=== PATIENT | female | born 1965 | race Caucasian/White ===

== ENCOUNTER 2020-11-03 12:33 | Emergency (ER) | payer MEDICAID ==
[~2020-11-03] VITALS: Ht 177.8 cm; Wt 70.0 kg
[2020-11-03 12:40] VITALS: BP 134/89
[2020-11-03] MEDS ORDERED: naloxone 2mg/2ml inj IM STA (13:02)
[2020-11-03] MEDS ORDERED: naloxone 2mg/2ml inj ONE (13:03)
[2020-11-03] MEDS ORDERED: normal saline 1000ML IV soln IVB ONE (13:05)
[2020-11-03] MEDS ORDERED: naloxone 0.4 mg/ml inj IV PRN (13:05)
== END 2020-11-03 14:45 | disposition home or self-care (01) ==
LOC: ER 12:35
DX: T40.1X1A Poisoning by heroin, accidental (unintentional), initial encounter (principal); R40.0 Somnolence; F32.9 Major depressive disorder, single episode, unspecified; F17.200 Nicotine dependence, unspecified, uncomplicated; Z72.89 Other problems related to lifestyle; F11.90 Opioid use, unspecified, uncomplicated; Z86.19 Personal history of other infectious and parasitic diseases; Z85.3 Personal history of malignant neoplasm of breast; Y92.89 Other specified places as the place of occurrence of the external cause
CPT/HCPCS: 96372; 99284; J2310

== ENCOUNTER 2024-01-05 12:07 | Emergency (ER) | payer MEDICAID ==
[~2024-01-05] VITALS: Ht 177.8 cm; Wt 68.2 kg
[2024-01-05 12:18] VITALS: BP 147/117; PULSE 69; TEMP 98; O2SAT 99
[2024-01-05] MEDS ORDERED: ketorolac trometh inj. 60 MG/2 ML VIAL IM ONE (12:45)
[2024-01-05] MEDS ORDERED: CYCL-1 PO (12:48)
[2024-01-05] MEDS ORDERED: PRED20TA PO (12:48)
[2024-01-05 12:51] VITALS: RESP 16
[2024-01-05] MEDS: ketorolac tromethamine 15mg/ml inj. IM ONE (12:51)
== END 2024-01-05 12:58 | disposition home or self-care (01) ==
LOC: ER 12:07
DX: S39.012A Strain of muscle, fascia and tendon of lower back, initial encounter (principal); F32.A Depression, unspecified; F11.90 Opioid use, unspecified, uncomplicated; Z72.89 Other problems related to lifestyle; X58.XXXA Exposure to other specified factors, initial encounter; Y93.89 Activity, other specified; Y92.89 Other specified places as the place of occurrence of the external cause; Y99.8 Other external cause status
CPT/HCPCS: 96372; 99283; J1885

== ENCOUNTER 2024-01-24 12:06 | Emergency (ER) | payer MEDICAID ==
[~2024-01-24] VITALS: Ht 177.8 cm; Wt 54.4 kg
[~2024-01-24 12:06] MED LIST: CYCL-1 PO; PRED20TA PO
[2024-01-24 12:22] VITALS: TEMP 98.3
[2024-01-24] MEDS: LIDOcaine 1% 30ml preserv. free vial IJ STA (15:12)
[2024-01-24] MEDS: amox tr/potassium clavulanate 875/125mg TAB PO ONE (15:12)
[2024-01-24] MEDS ORDERED: AMOX-580 PO (15:53)
[2024-01-24 16:14] VITALS: BP 142/91; PULSE 60; RESP 16; O2SAT 99
== END 2024-01-24 16:16 | disposition home or self-care (01) ==
LOC: ER 12:06
DX: S61.213A Laceration without foreign body of left middle finger without damage to nail, initial encounter (principal); Z85.3 Personal history of malignant neoplasm of breast; F32.A Depression, unspecified; F11.90 Opioid use, unspecified, uncomplicated; W54.0XXA Bitten by dog, initial encounter; Y93.89 Activity, other specified; Y92.89 Other specified places as the place of occurrence of the external cause; Y99.8 Other external cause status
CPT/HCPCS: 12001; 73140; 99283; J3490

== ENCOUNTER 2024-01-28 15:43 | Emergency (ER) | payer MEDICAID ==
[~2024-01-28] VITALS: Ht 177.8 cm; Wt 68.2 kg
[~2024-01-28 15:43] MED LIST changes: +AMOX-580 PO
[2024-01-28 15:47] VITALS: BP 128/74; PULSE 72; RESP 16; TEMP 98.6; O2SAT 97
[2024-01-28] MEDS ORDERED: AMOX-580 PO (16:58)
== END 2024-01-28 17:13 | disposition home or self-care (01) ==
LOC: ER 15:43
DX: S61.213D Laceration without foreign body of left middle finger without damage to nail, subsequent encounter (principal); F11.90 Opioid use, unspecified, uncomplicated; Z72.89 Other problems related to lifestyle; Z85.3 Personal history of malignant neoplasm of breast; Z79.2 Long term (current) use of antibiotics; Z79.899 Other long term (current) drug therapy; Z60.2 Problems related to living alone; X58.XXXD Exposure to other specified factors, subsequent encounter
CPT/HCPCS: 99283; J7030; 99281; A6258; A6449

== ENCOUNTER 2024-01-29 13:35 | Emergency (ER) | payer MEDICAID ==
[~2024-01-29] VITALS: Ht 177.8 cm; Wt 68.9 kg
[2024-01-29 13:36] VITALS: BP 120/71; PULSE 85; RESP 16; TEMP 98.5; O2SAT 95
== END 2024-01-29 15:45 | disposition home or self-care (01) ==
LOC: ER 13:35
DX: S60.943D Unspecified superficial injury of left middle finger, subsequent encounter (principal); W54.0XXD Bitten by dog, subsequent encounter; F32.A Depression, unspecified; F11.90 Opioid use, unspecified, uncomplicated; Z60.2 Problems related to living alone
CPT/HCPCS: 99281

== ENCOUNTER 2024-02-05 05:58 | Emergency (ER) | payer MEDICAID ==
[~2024-02-05] VITALS: Ht 177.8 cm; Wt 68.2 kg
[~2024-02-05 05:58] MED LIST changes: -AMOX-580 PO
[2024-02-05 06:08] VITALS: BP 115/73; PULSE 78; TEMP 96.9; O2SAT 100
[2024-02-05 06:34] VITALS: RESP 14
== END 2024-02-05 07:53 | disposition home or self-care (01) ==
LOC: ER 05:58
DX: S61.253A Open bite of left middle finger without damage to nail, initial encounter (principal); F32.A Depression, unspecified; F17.200 Nicotine dependence, unspecified, uncomplicated; F11.90 Opioid use, unspecified, uncomplicated; Z60.2 Problems related to living alone; W54.0XXA Bitten by dog, initial encounter; Y93.89 Activity, other specified; Y92.89 Other specified places as the place of occurrence of the external cause; Y99.8 Other external cause status
CPT/HCPCS: 99281